=== PATIENT | female | born 1945 | race Caucasian/White ===

== ENCOUNTER → 2017-01-18 | Outpatient (CLI) | payer OTHER | LOC: FIMAGING 10:58 | PROVIDERS: ATTEND Internal Medicine Hematology & Oncology | DX: Z12.31 Encounter for screening mammogram for malignant neoplasm of breast (principal); Z80.3 Family history of malignant neoplasm of breast | CPT/HCPCS: G0202 ==

== ENCOUNTER → 2017-04-02 | Outpatient (CLI) | payer OTHER | LOC: FIMAGING 13:53 | PROVIDERS: ATTEND Internal Medicine Hematology & Oncology | DX: Z13.820 Encounter for screening for osteoporosis (principal); M85.80 Other specified disorders of bone density and structure, unspecified site; C50.919 Malignant neoplasm of unspecified site of unspecified female breast; C49.A0 Gastrointestinal stromal tumor, unspecified site; C49.4 Malignant neoplasm of connective and soft tissue of abdomen; D50.9 Iron deficiency anemia, unspecified ==

== ENCOUNTER → 2017-05-10 | Outpatient (CLI) | payer OTHER | LOC: CIMAGING 10:09 | PROVIDERS: ATTEND Physician Assistant | DX: D37.030 Neoplasm of uncertain behavior of the parotid salivary glands (principal) | CPT/HCPCS: 76536-PO ==

== ENCOUNTER 2017-07-22 11:33 | Day surgery (SDC) | payer OTHER ==
[2017-07-22] MEDS ORDERED: LR 1,000 ML IV ONE (12:13)
[2017-07-22] MEDS ORDERED: LIDOCAINE 1% 2 ML INJ ID PRN (12:13)
[2017-07-22] MEDS ORDERED: LIDOCAINE 1% 2 ML INJ ONE (12:15)
--- NOTE | 2017-07-22 13:02 | PDGENHP ---
History & Physical Chief Complaint: GERD/gist/hx polyps History of Present Illness: 71 year old female presents for evaluation of dysphagia and GERD. Hx of GIST s/p surgery. Pertinent Past, Social, Family History: PMHx: GIST. SurgHx: partial esophagus/ stomach removal Relevant Physical Exam: HEENT: anicteric. CV: RRR +s1s2. Lungs: CTAB. Abd: soft, nt, + BS Cardiorespiratory Assessment: ASA 2
[2017-07-22] MEDS ORDERED: INDOMETHACIN 50 MG SUPP PR PRN (13:03)
[2017-07-22] MEDS ORDERED: MIDAZOLAM 2 MG/2 ML VIAL IVP ONE (13:11)
--- NOTE | 2017-07-22 13:11 | PDANEPAE ---
ANE History of Present Illness EGD, Colonoscopy ANE Past Medical History - Cardiovascular History Hx Hypertension: No Hx Arrhythmias: No Hx Chest Pain: No Hx Coronary Artery / Peripheral Vascular Disease: No Hx CHF / Valvular Disease: No Hx Palpitations: No - Pulmonary History Hx COPD: No Hx Asthma/Reactive Airway Disease: No Hx Recent Upper Respiratory Infection: No Hx Oxygen in Use at Home: No Hx Sleep Apnea: No Sleep Apnea Screening Result - Last Documented: Negative - Neurologic History Hx Cerebrovascular Accident: No Hx Seizures: No Hx Dementia: No - Endocrine History Hx Diabetes: No Endocrine History Comment: being monitored by social media sr strategy manager for her thyroid nodules - Renal History Hx Renal Disorders: No - Liver History Hx Hepatic Disorders: No - Neurological & Psychiatric Hx Hx Neurological and Psychiatric Disorders: No Neurological / Psychiatric History Comment: anxiety surrounding husbands dx of terminal ca - Cancer History Hx Cancer: Yes Cancer History Comment: breast cancer and GIST- gastrointestinal stromal tumor. radiation with breast cancer and took irrimadex and now doing gleevec for GIST - Congenital Disorder History Hx Congenital Disorders: No - GI History Hx Gastrointestinal Disorders: Yes Gastrointestinal History Comment: reflux- no sphincter to keep the acid down. cannot lay flat. partial stomach. GIST - Other Health History Other Health History: wears partial- she will leave at home. very fragile thin skin d/t gleevec. bruises easily - Chronic Pain History Chronic Pain: No - Surgical History Prior Surgeries: egd with dilation with Isaiahu 06/04/16. egd with Raju 12/2014 and 04/21/12. 2002 breast lumpectomy. hysterectomy. santino. appy at 7 yo. broken leg and jaw repair from [facility]. 2010 partial esophagectomy d/t to rare cancer called GIST ANE Review of Systems Review of systems is: negative Review of Systems: - Exercise capacity METS (RN): 4 METS ANE Patient History - Allergies Allergies/Adverse Reactions: erythromycin base Allergy (Verified 06/26/17 10:33) Rash ketamine [Ketamine] Allergy (Verified 06/26/17 10:33) hallucinations in recovery room Penicillins Allergy (Verified 06/26/17 10:33) many years ago caused oral swelling - Home Medications Home medications: home medication list seen and reviewed Home Medications: Gleevec 100 mg (*) 06/01/16 [Last Taken 2 Days Ago ~07/20/17] Herbals/Supplements -Info Only 06/01/16 [Last Taken 1 Week Ago ~07/15/17] Prevacid 06/01/16 [Last Taken 07/22/17] Tums 500MG (*) 06/26/17 [Last Taken 07/22/17] - NPO status NPO Status: no food or drink >8 hours NPO Since - Liquids (Date): 07/22/17 NPO Since - Liquids (Time): 07:40 NPO Since - Solids (Date): 07/20/17 NPO Since - Solids (Time): 09:00 - Anes Hx Anes Hx: no prior problems - Smoking Hx Smoking Status: Never smoked - Family Anes Hx Family Anes Hx: none Family Hx Anesthesia Complications: none ANE Labs/Vital Signs - Vital Signs Blood Pressure: 159/74 Heart Rate: 78 Respiratory Rate: 18 O2 Sat (%): 96 Height: 165.1 cm Weight: 53.524 kg ANE Physical Exam - Airway Neck exam: FROM Mallampati Score: Class 1 Mouth exam: poor dentition - Pulmonary Pulmonary: no respiratory distress - Cardiovascular Cardiovascular: regular rate and rhythym - ASA Status ASA Status: III ANE Anesthesia Plan Total IV Anesthesia: Yes
[2017-07-22] MEDS ORDERED: MIDAZOLAM 2 MG/2 ML VIAL ONE (13:13)
[2017-07-22] MEDS ORDERED: NS 500 ML IV SCH (13:15)
[2017-07-22] MEDS ORDERED: PROPOFOL/EMULSION 500 MG/50 ML BOTTLE IV ONE (13:16)
--- NOTE | 2017-07-22 13:36 | GIREPORT ---
[facility] - Endoscopy Department Patient Name: Alice Choi Procedure Date: 07/22/2017 1:07 PM Patient Type: Outpatient Attending MD/ ER Physician: Aniceto Matos MD Procedure: Upper GI endoscopy Indications: Dysphagia, Esophageal reflux Patient Profile: 71 year old female with a history of GIST s/p resection, anastomotic esophageal stricture presents for evaluation of heartburn and dysphagia . Providers: Aniceto Matos MD Medicines: Monitored Anesthesia Care Complications: No immediate complications. Estimated blood loss: Minimal. Description of Procedure: After obtaining informed consent, the endoscope was passed under direct vision. Throughout the procedure, the patient's blood pressure, pulse, and oxygen saturations were monitored continuously. The Endoscope was intro duced through the mouth, and advanced to the second part of duodenum. The [facility] er GI endoscopy was accomplished without difficulty. The patient tolerated th e procedure well. Findings: One moderate benign-appearing, intrinsic stenosis was found at the esophageal anastomosis. And was traversed. A TTS dilator was passed thr ough the scope. Dilation with a 12-13.5-15 mm balloon and a 15-16.5-18 mm ba lloon dilator was performed to 18 mm. Biopsies were taken with a cold forceps for histology. Diffuse erythematous mucosa was found in the entire examined stomach. Biopsies were taken with a cold forceps for histology. The examined duodenum was normal. Estimated Blood Loss: Estimated blood loss was minimal. Post Op Diagnosis: - Benign-appearing esophageal stenosis. Dilated. Biopsied. - Erythematous mucosa in the stomach. Biopsied. - Normal examined duodenum. Recommendation: - Perform a colonoscopy today. - Follow an antireflux regimen. - Use a proton pump inhibitor PO daily. - Thank you for allowing me to participate in the care of your patient. Attending Participation: I personally performed the entire procedure. Aniceto Matos MD Aniceto Matos MD 07/22/2017 1:36:31 PM This report has been signed electronicallyAniceto Matos MD Number of Addenda: 0 Note Initiated On: 07/22/2017 1:07 PM [email or web address]}
[2017-07-22] MEDS ORDERED: HYDROCODONE/APAP 5/325 TAB PO PRN (14:04)
[2017-07-22] MEDS ORDERED: NALOXONE HCL 0.4 MG/ML INJ IVP PRN (14:04)
[2017-07-22] MEDS ORDERED: OXYCODONE/APAP 5/325 TAB PO PRN (14:04)
[2017-07-22] MEDS ORDERED: ACETAMINOPHEN 500 MG TAB PO PRN (14:04)
[2017-07-22] MEDS ORDERED: DIAZEPAM 10 MG/2 ML SYR IVP PRN (14:04)
[2017-07-22] MEDS ORDERED: ONDANSETRON 4 MG/2 ML VIAL IVP PRN (14:04)
[2017-07-22] MEDS ORDERED: fentaNYL 100 MCG/2 ML INJ IVP PRN (14:04)
--- NOTE | 2017-07-22 14:04 | POSTANESTH ---
Post Anesthetic Evaluation Cardiovascular Status: Normal, Stable, Similar to Pre-Op Cond Respiratory Status: Normal, Stable, Similar to Pre-op Cond. Level of Consciousness/Mental Status: Can Participate in Eval, Moderately Sleepy Pain Control: Adequate, Prn Tx Ordered Nausea/Vomiting Control: Adequate, Prn Tx Ordered Complications Possibly Related to Anesthesia: None Noted
--- NOTE | 2017-07-22 14:13 | GIREPORT ---
Replaced By [facility] - Endoscopy Department Patient Name: Alice Choi Procedure Date: 07/22/2017 1:06 PM Patient Type: Outpatient Attending MD/ ER Physician: Aniceto Matos MD Procedure: Colonoscopy Indications: High risk colon cancer surveillance: Personal history of colonic polyps Patient Profile: 71 year old female with a personal history of polyps presents for surveillance colonoscopy. Providers: Aniceto Matos MD Medicines: Monitored Anesthesia Care Complications: No immediate complications. Description of Procedure: After obtaining informed consent, the scope was passed under direct vis ion. Throughout the procedure, the patient's blood pressure, pulse, and oxyg en saturations were monitored continuously. The Colonoscope with irrigatio n channel was introduced through the anus with the intention of advancing to the cecum. The scope was advanced to the transverse colon before the procedure was aborted. Medications were given. The colonoscopy was perf ormed without difficulty. The patient tolerated the procedure well. The quali ty of the bowel preparation was poor. Findings: The perianal and digital rectal examinations were normal. Pertinent negatives include no palpable rectal lesions. Copious quantities of stool was found in the rectum, in the sigmoid col on, in the descending colon and in the transverse colon, precluding visualization. This was aggressively suctioned but the scope was clogge d mutliple times. Estimated Blood Loss: Estimated blood loss: none. Post Op Diagnosis: - Preparation of the colon was poor. - Stool in the rectum, in the sigmoid colon, in the descending colon an d in the transverse colon. - No specimens collected. Recommendation: - Discharge patient to home (with escort). - Resume previous diet. - Continue present medications. - Repeat colonoscopy at the next available appointment because the daphney l preparation was suboptimal. - 2 whole preps over 2 days - Thank you for allowing me to participate in the care of your patient. Attending Participation: I personally performed the entire procedure. Aniceto Matos MD Aniceto Matos MD 07/22/2017 2:12:50 PM This report has been signed electronicallyAniceto Matos MD Number of Addenda: 0 Note Initiated On: 07/22/2017 1:06 PM [email or web address]}
[2017-07-22 14:58] VITALS: TEMP 97.7; O2SAT 96
[2017-07-22 15:57] VITALS: BP 121/77; PULSE 77; RESP 18
== END 2017-07-22 16:00 | disposition home or self-care (01) ==
LOC: FSGY 11:33
PROVIDERS: ATTEND Internal Medicine Gastroenterology
PROC: 0DJD8ZZ Inspection of Lower Intestinal Tract, Via Natural or Artificial Opening Endoscopic (ICD-10-PCS; principal; 2017-07-22 13:15)
PROC: 0DB58ZX Excision of Esophagus, Via Natural or Artificial Opening Endoscopic, Diagnostic (ICD-10-PCS; 2017-07-22 13:15)
PROC: 0D758ZZ Dilation of Esophagus, Via Natural or Artificial Opening Endoscopic (ICD-10-PCS; 2017-07-22 13:15)
PROC: 0DB68ZX Excision of Stomach, Via Natural or Artificial Opening Endoscopic, Diagnostic (ICD-10-PCS; 2017-07-22 13:15)
DX: K22.2 Esophageal obstruction (principal); R13.10 Dysphagia, unspecified; K21.9 Gastro-esophageal reflux disease without esophagitis; Z86.010 Personal history of colon polyps
CPT/HCPCS: 43233; 43239; 45378; C1726; J2250; J2704

== ENCOUNTER 2017-10-07 11:46 | Day surgery (SDC) | payer OTHER ==
[2017-10-07] MEDS ORDERED: LR 1,000 ML IV ONE (12:15)
[2017-10-07] MEDS ORDERED: PROPOFOL/EMULSION 500 MG/50 ML BOTTLE IV ONE (13:03)
[2017-10-07] MEDS ORDERED: LIDOCAINE 2% 5 ML SDV ONE (13:05)
--- NOTE | 2017-10-07 13:11 | PDANEPAE ---
ANE Past Medical History - Cardiovascular History Hx Hypertension: No Hx Arrhythmias: No Hx Chest Pain: No Hx Coronary Artery / Peripheral Vascular Disease: No Hx CHF / Valvular Disease: No Hx Palpitations: No - Pulmonary History Hx COPD: No Hx Asthma/Reactive Airway Disease: No Hx Recent Upper Respiratory Infection: No Hx Oxygen in Use at Home: No Hx Sleep Apnea: No Sleep Apnea Screening Result - Last Documented: Negative - Neurologic History Hx Cerebrovascular Accident: No Hx Seizures: No Hx Dementia: No - Endocrine History Hx Diabetes: No Endocrine History Comment: being monitored by pediatric physical therapist for her thyroid nodules - Renal History Hx Renal Disorders: No - Liver History Hx Hepatic Disorders: No - Neurological & Psychiatric Hx Hx Neurological and Psychiatric Disorders: No Neurological / Psychiatric History Comment: anxiety surrounding husbands dx of terminal ca - Cancer History Hx Cancer: Yes Cancer History Comment: breast cancer and GIST- gastrointestinal stromal tumor. radiation with breast cancer and took irrimadex and now doing gleevec for GIST - Congenital Disorder History Hx Congenital Disorders: No - GI History Hx Gastrointestinal Disorders: Yes Gastrointestinal History Comment: reflux- no sphincter to keep the acid down. cannot lay flat. partial stomach. GIST - Other Health History Other Health History: wears partial- she will leave at home. very fragile thin skin d/t gleevec. bruises easily - Chronic Pain History Chronic Pain: No - Surgical History Prior Surgeries: egd with dilation with Isaiahu 06/04/16. egd with Isaiahu 12/2014 and 04/21/12. 2002 breast lumpectomy. hysterectomy. santion. appy at 7 yo. broken leg and jaw repair from [facility]. 2010 partial esophagectomy d/t to rare cancer called GIST ANE Review of Systems Review of Systems: - Exercise capacity METS (RN): 4 METS ANE Patient History - Allergies Allergies/Adverse Reactions: Iodinated Contrast- Oral and IV Dye Allergy (Unknown, Verified 09/24/17 16:24) Other-Enter Comments erythromycin base Allergy (Verified 06/26/17 10:33) Rash ketamine [Ketamine] Allergy (Verified 06/26/17 10:33) hallucinations in recovery room Penicillins Allergy (Verified 06/26/17 10:33) many years ago caused oral swelling - Home Medications Home medications: home medication list seen and reviewed Home Medications: Gleevec 100 mg (*) 06/01/16 [Last Taken 10/04/17] Herbals/Supplements -Info Only 06/01/16 [Last Taken 09/30/17] Tums 500MG (*) 06/26/17 [Last Taken 10/06/17] Dexilant 09/24/17 [Last Taken 10/07/17] - NPO status NPO Since - Liquids (Date): 10/06/17 NPO Since - Liquids (Time): 06:00 NPO Since - Solids (Date): 10/04/17 - Smoking Hx Smoking Status: Never smoked - Family Anes Hx Family Hx Anesthesia Complications: none ANE Labs/Vital Signs - Vital Signs Blood Pressure: 142/76 Heart Rate: 74 Respiratory Rate: 14 O2 Sat (%): 96 Height: 165.1 cm Weight: 53.524 kg ANE Physical Exam - Airway Neck exam: FROM Mallampati Score: Class 1 Mouth exam: normal dental/mouth exam - Pulmonary Pulmonary: no respiratory distress - Cardiovascular Cardiovascular: regular rate and rhythym - ASA Status ASA Status: III ANE Anesthesia Plan Anesthesia Plan: GA with mask
[2017-10-07] MEDS ORDERED: INDOMETHACIN 50 MG SUPP PR PRN (13:28)
--- NOTE | 2017-10-07 13:28 | PDGENHP ---
History & Physical Chief Complaint: phx polyps History of Present Illness: 72 year old female presents for surveillance colonoscopy. Pertinent Past, Social, Family History: PMHx:GIST, HTN. hyperlipidemia. SugHx: GIST. SoHx: no alc or cigs Relevant Physical Exam: HEENT: Anicteric. Cv: RRR +S1s2. lungs: CTAB. Abd: soft, nt + bs Cardiorespiratory Assessment: ASA 2
[2017-10-07] MEDS ORDERED: NS 500 ML IV SCH (13:30)
[2017-10-07] MEDS ORDERED: fentaNYL 100 MCG/2 ML INJ ONE (13:44)
--- NOTE | 2017-10-07 13:54 | POSTANESTH ---
Post Anesthetic Evaluation Cardiovascular Status: Normal, Stable Respiratory Status: Normal, Stable Level of Consciousness/Mental Status: Can Participate in Eval Pain Control: Adequate, Prn Tx Ordered Nausea/Vomiting Control: Adequate, Prn Tx Ordered Complications Possibly Related to Anesthesia: None Noted
[2017-10-07] MEDS ORDERED: ACETAMINOPHEN 500 MG TAB PO PRN (13:55)
[2017-10-07] MEDS ORDERED: LR 500 ML IV PRN (13:55)
[2017-10-07] MEDS ORDERED: oxyCODONE IR 5 MG TAB PO PRN (13:55)
[2017-10-07] MEDS ORDERED: fentaNYL 100 MCG/2 ML INJ IVP PRN (13:55)
[2017-10-07] MEDS ORDERED: ALBUTEROL 3 ML DEYVIAL IH PRN (13:55)
[2017-10-07] MEDS ORDERED: ONDANSETRON 4 MG/2 ML VIAL IVP PRN (13:55)
[2017-10-07] MEDS ORDERED: NALOXONE HCL 0.4 MG/ML INJ IVP PRN (13:55)
[2017-10-07] MEDS ORDERED: HYDROCODONE/APAP 5/325 TAB PO PRN (13:55)
--- NOTE | 2017-10-07 14:39 | GIREPORT ---
[facility] - Endoscopy Department Patient Name: Alice Choi Procedure Date: 10/07/2017 1:17 PM Patient Type: Outpatient Attending MD/ ER Physician: Aniceto Matos MD Procedure: Colonoscopy Indications: High risk colon cancer surveillance: Personal history of colonic polyps Patient Profile: 72 year old female with a personal history of polyps presents for surveillance colonoscopy. Providers: Aniceto Matos MD Medicines: Monitored Anesthesia Care Complications: No immediate complications. Estimated blood loss: Minimal. Description of Procedure: After obtaining informed consent, the scope was passed under direct vis ion. Throughout the procedure, the patient's blood pressure, pulse, and oxyg en saturations were monitored continuously. The Colonoscope with irrigatio n channel was introduced through the anus and advanced to the cecum, identified by appendiceal orifice and ileocecal valve. The colonoscopy was performed without difficulty. The patient tolerated the procedure well. The quality of the bowel preparation was good. The ileocecal valve, appendi ceal orifice, and rectum were photographed. Findings: The perianal and digital rectal examinations were normal. Pertinent negatives include no palpable rectal lesions. A 15 mm polyp was found in the ascending colon. The polyp was carpet-li ke. The polyp was removed with a piecemeal technique using a hot snare. Resection and retrieval were complete. Two sessile polyps were found in the hepatic flexure and ascending colo n. The polyps were 2 to 3 mm in size. These polyps were removed with a col d biopsy forceps. Resection and retrieval were complete. Estimated Blood Loss: Estimated blood loss was minimal. Post Op Diagnosis: - One 15 mm polyp in the ascending colon, removed piecemeal using a hot snare. Resected and retrieved. - Two 2 to 3 mm polyps at the hepatic flexure and in the ascending colo n, removed with a cold biopsy forceps. Resected and retrieved. Recommendation: - Discharge patient to home (with escort). - Resume previous diet. - Continue present medications. - Repeat colonoscopy in 1 year for surveillance after piecemeal polypec tg. - Await pathology results. - Thank you for allowing me to participate in the care of your patient. Attending Participation: I personally performed the entire procedure. Aniceto Matos MD Aniceto Matos MD 10/07/2017 2:39:03 PM This report has been signed electronicallyAniceto Matos MD Number of Addenda: 0 Note Initiated On: 10/07/2017 1:17 PM Total Procedure Duration Time 0 hours 37 minutes 22 seconds [email or web address]}
[2017-10-07 15:37] VITALS: BP 132/75
== END 2017-10-07 16:30 | disposition home or self-care (01) ==
LOC: FSGY 11:46
PROVIDERS: ATTEND Internal Medicine Gastroenterology
PROC: 0DBK8ZX Excision of Ascending Colon, Via Natural or Artificial Opening Endoscopic, Diagnostic (ICD-10-PCS; principal; 2017-10-07 13:15)
PROC: 0DBL8ZX Excision of Transverse Colon, Via Natural or Artificial Opening Endoscopic, Diagnostic (ICD-10-PCS; principal; 2017-10-07 13:15)
DX: Z12.11 Encounter for screening for malignant neoplasm of colon (principal); D12.2 Benign neoplasm of ascending colon; D12.3 Benign neoplasm of transverse colon; C49.A0 Gastrointestinal stromal tumor, unspecified site; Z87.19 Personal history of other diseases of the digestive system; Z85.3 Personal history of malignant neoplasm of breast; Z92.3 Personal history of irradiation
CPT/HCPCS: J2704; J3010

== ENCOUNTER → 2018-01-20 | Outpatient (CLI) | payer OTHER | LOC: FIMAGING 12:46 | PROVIDERS: ATTEND Internal Medicine Hematology & Oncology | DX: Z12.31 Encounter for screening mammogram for malignant neoplasm of breast (principal); Z85.3 Personal history of malignant neoplasm of breast ==

== ENCOUNTER 2018-09-29 18:35 | Emergency (ER) | payer OTHER ==
--- NOTE | 2018-09-29 20:09 | EDPHY ---
H & P Stated Complaint: asymtomatic L wrist pain at 1530 today. On Gkeevec Time Seen by Provider: 09/29/18 19:06 HPI/ROS: CHIEF COMPLAINT: Left wrist pain HISTORY OF PRESENT ILLNESS: This is a 73-year-old female with a history of GIST for which she takes Gleevec. She presents today after talking with her oncologist about left anterior wrist pain that occurred 2 hr prior to her presentation and has now mostly subsided (from a "10" to a "2"). She has had some pain at this site on and off for the past year but today's episode was much more severe than anything she has previously experienced. This occurred while she was at rest. The is seemed to come on abruptly and lasted almost 2 hr , although it began to improve at some point during that time. She did not take any medication for this pain. It was so severe that it brought her to tears, which is unusual for her. The pain extended into her index and long finger. No arm pain. No neck pain. She felt as if she could not open or close her hand when she had this pain. She notes that she has some swelling of her digits. She has not had any trauma. She does not perform work it that involves repetitive hand movements. She is not diabetic. She has no history of rheumatoid arthritis. She has had no trauma. REVIEW OF SYSTEMS: A ten system review of systems was performed and is negative with the exception of the items mentioned in the HPI. Past medical history: GIST Past surgical history: Noncontributory Social history: She lives alone. No tobacco use. General Appearance: Alert. Vital signs reviewed. Eyes: Pupils equal and round, no conjunctival injection, no discharge. Anicteric. Neck: Nontender to palpation of the cervical spine. Respiratory: Lungs are clear to auscultation; no wheezes, rales, or rhonchi. Cardiovascular: Regular rate and rhythm; no murmur, rub, or gallop. Skin: Warm and dry, no rashes on exposed skin, normal color. No abnormal skin warmth and no erythema. Pulses: 2+ radial pulses bilaterally. Brisk capillary refill left digits. Extremities: Mild swelling of the digits of her left hand. No wasting of the left thenar eminence. No joint deformities involving the upper extremities. Neurological: Alert and oriented. Moving all four extremities easily and equally. Positive Tinel's on the left. 5/5 strength with testing of bilateral deltoids, biceps, triceps, boom cat operator, wrist flexion, wrist extension, interossei. Sensation is intact to light touch over both upper extremities. Deep tendon reflexes are 2+ in the biceps and triceps bilaterally. Psychiatric: Normal affect. - Personal History Current Tetanus Diphtheria and Acellular Pertussis (TDAP): Unsure Tetanus Vaccine Date: unsure of date - Medical/Surgical History Hx Asthma: No Hx Chronic Respiratory Disease: No Hx Diabetes: No Hx Cardiac Disease: No Hx Renal Disease: No Hx Cirrhosis: No Hx Alcoholism: No Hx HIV/AIDS: No Hx Splenectomy or Spleen Trauma: No Other PMH: GIST - Social History Smoking Status: Never smoked Constitutional: Initial Vital Signs Temperature (C) 37 C 09/29/18 18:39 Heart Rate 90 09/29/18 18:39 Respiratory Rate 16 09/29/18 18:39 Blood Pressure 145/80 H 09/29/18 18:39 O2 Sat (%) 96 09/29/18 18:39 O2 Delivery Mode Room Air Allergies/Adverse Reactions: Iodinated Contrast- Oral and IV Dye Allergy (Unknown, Verified 09/29/18 18:39) Other-Enter Comments erythromycin base Allergy (Verified 09/29/18 18:39) Rash ketamine [Ketamine] Allergy (Verified 09/29/18 18:39) hallucinations in recovery room Penicillins Allergy (Verified 09/29/18 18:39) many years ago caused oral swelling Home Medications: Medication Instructions Recorded Gleevec 100 mg (*) 06/01/16 Tums 500MG (*) 06/26/17 Medical Decision Making ED Course/Re-evaluation: Atraumatic left wrist pain. There is nothing to suggest a vascular occlusion at the time of my exam. She has a normal neurologic exam. Nothing to suggest radiculopathy. I wonder about carpal tunnel syndrome and she and I discussed this is a possibility. There are no signs of infection--no warmth or erythema. She has no joint deformities. She has mild swelling of the digits of her left hand and I advised her to remove the ring that she is wearing on her ring finger. She has had no trauma and I do not suspect In my opinion, this fracture will not require reduction or surgical treatment. Management of this fracture consists of immobilization with a [default value], control of swelling with ice and elevation, and pain control. Periodic followup is required. The first followup with an orthopedist as recommended in [default value] days. This constitutes essential management of this fracture.. We talked about symptomatic treatment with ice, elevation, and a short course of NSAIDs. I spoke with her oncologist about the advisability of NSAIDs (with Gleevec) and was given the go ahead for a short course. Along with symptomatic treatment I am recommending watching and waiting. She is not improving or if she has a change in her symptoms, she should be re- evaluated. We discussed danger signs that should prompt immediate re- evaluation. Departure - Departure Disposition: Home, Routine, Self-Care Clinical Impression: Wrist pain, acute Qualifiers: Laterality: left Qualified Code(s): M25.532 - Pain in left wrist Condition: Good Instructions: Arthralgia (ED) Additional Instructions: It is not clear what is causing your wrist pain. I note that your fingers are somewhat swollen. Please keep her hand elevated above the level of your heart as much as possible. I am concerned about the possibility of nerve compression in your wrist. This is called carpal tunnel syndrome. I would like you to take ibuprofen, 400 mg, when you get home tonight. You can take another dose in the morning and can take it every eight hours. You should not take this longer than a day or two. Please follow up with either primary care physician or your oncologist. If you are worse in any way return to the emergency department for another evaluation. Referrals: Domi Patel MD [Primary Care Provider] - As per Instructions Bryan Trevizo MD [Medical Doctor] - As per Instructions
[2018-09-29 20:23] VITALS: BP 142/79
== END 2018-09-29 20:22 | disposition home or self-care (01) ==
DX: M25.532 Pain in left wrist (principal); C49.A0 Gastrointestinal stromal tumor, unspecified site; Z79.899 Other long term (current) drug therapy

== ENCOUNTER → 2018-10-02 | Outpatient (CLI) | payer OTHER | LOC: BHFA 13:15 | PROVIDERS: ATTEND Internal Medicine Cardiovascular Disease | DX: R06.02 Shortness of breath (principal); R07.9 Chest pain, unspecified ==

== ENCOUNTER 2018-10-13 10:37 | Day surgery (SDC) | payer OTHER ==
[2018-10-13] MEDS ORDERED: LR 1,000 ML IV ONE (10:55)
[2018-10-13] MEDS ORDERED: PROPOFOL/EMULSION 500 MG/50 ML BOTTLE IV ONE (12:35)
[2018-10-13] MEDS ORDERED: fentaNYL 100 MCG/2 ML INJ ONE (12:35)
[2018-10-13] MEDS ORDERED: INDOMETHACIN 50 MG SUPP PR PRN (12:36)
--- NOTE | 2018-10-13 12:36 | PDGENHP ---
History & Physical Chief Complaint: gist/heartburn/hx of complex polyps History of Present Illness: 73 year old female presents for evaluation of complex ascending colon polyp, heartburn Pertinent Past, Social, Family History: PMHx: GERD, GIST. PSurgHx: Esophageal/ gastric resection Relevant Physical Exam: HEENT: anicteric. CV: RRR +s1s2. Lungs: CTAB. Abd: soft, nt, + bs Cardiorespiratory Assessment: HEENT: anicteric. Cv; RRR +s1s2. Lungs: CTAB. Abd: soft,nt, + bs
[2018-10-13] MEDS ORDERED: NS 500 ML IV SCH (12:45)
[2018-10-13] MEDS ORDERED: fentaNYL 100 MCG/2 ML INJ IVP PRN (13:13)
[2018-10-13] MEDS ORDERED: DEXAMETHASONE 4 MG/ML VIAL IVP PRN (13:13)
[2018-10-13] MEDS ORDERED: PHENYLEPHRINE HCL 100 MCG/ML SYR IVP PRN (13:13)
[2018-10-13] MEDS ORDERED: NALOXONE HCL 0.4 MG/ML INJ IVP PRN (13:13)
[2018-10-13] MEDS ORDERED: METOCLOPRAMIDE 10 MG/2 ML VIAL IVP PRN (13:13)
[2018-10-13] MEDS ORDERED: ONDANSETRON 4 MG/2 ML VIAL IVP PRN (13:13)
[2018-10-13] MEDS ORDERED: LR 500 ML IV PRN (13:13)
[2018-10-13] MEDS ORDERED: PROMETHAZINE HCL 25 MG/ML INJ IVP PRN (13:13)
[2018-10-13] MEDS ORDERED: oxyCODONE IR 5 MG TAB PO PRN (13:13)
[2018-10-13] MEDS ORDERED: ALBUTEROL 3 ML DEYVIAL IH PRN (13:13)
[2018-10-13] MEDS ORDERED: MEPERIDINE 25 MG/0.5 ML AMP IVP PRN (13:13)
--- NOTE | 2018-10-13 13:13 | PDANEPAE ---
ANE History of Present Illness GIST tumor s/f EGD/colon ANE Past Medical History - Cardiovascular History Hx Hypertension: No Hx Arrhythmias: No Hx Chest Pain: No Hx Coronary Artery / Peripheral Vascular Disease: No Hx CHF / Valvular Disease: No Hx Palpitations: No Cardiovascular History Comment: BP meds discontinued several years ago. Intermittent arrythmia associated with anemia s/t GIST - Pulmonary History Hx COPD: No Hx Asthma/Reactive Airway Disease: No Hx Recent Upper Respiratory Infection: No Hx Oxygen in Use at Home: No Hx Sleep Apnea: No Sleep Apnea Screening Result - Last Documented: Negative - Neurologic History Hx Cerebrovascular Accident: No Hx Seizures: No Hx Dementia: No - Endocrine History Hx Diabetes: No Endocrine History Comment: being monitored by mechanic's assistant for her thyroid nodules - Renal History Hx Renal Disorders: No - Liver History Hx Hepatic Disorders: No - Neurological & Psychiatric Hx Hx Neurological and Psychiatric Disorders: No Neurological / Psychiatric History Comment: anxiety surrounding husbands dx of terminal ca - Cancer History Hx Cancer: Yes Cancer History Comment: breast cancer and GIST- gastrointestinal stromal tumor. radiation with breast cancer and took irrimadex and now doing gleevec for GIST - Congenital Disorder History Hx Congenital Disorders: No - GI History Hx Gastrointestinal Disorders: Yes Gastrointestinal History Comment: reflux- no sphincter to keep the acid down. cannot lay flat. partial stomach. GIST - Other Health History Other Health History: wears partial- she will leave at home. very fragile thin skin d/t gleevec. bruises easily - Chronic Pain History Chronic Pain: No - Surgical History Prior Surgeries: egd with dilation with Raju 06/04/16. egd with Raju 12/2014 and 04/21/12. 2002 breast lumpectomy. hysterectomy. santino. appy at 7 yo. broken leg and jaw repair from [facility]va. 2010 partial esophagectomy d/t to rare cancer called GIST ANE Review of Systems Review of Systems: - Exercise capacity METS (RN): 4 METS ANE Patient History - Allergies Allergies/Adverse Reactions: ketamine [Ketamine] Allergy (Severe, Verified 10/03/18 09:07) hallucinations in recovery room Iodinated Contrast- Oral and IV Dye Allergy (Unknown, Verified 09/29/18 18:39) Other-Enter Comments erythromycin base Allergy (Verified 09/29/18 18:39) Rash Penicillins Allergy (Verified 09/29/18 18:39) many years ago caused oral swelling - Home Medications Home medications: home medication list seen and reviewed Home Medications: Gleevec 100 mg (*) 06/01/16 [Last Taken 10/10/18] Tums 500MG (*) 1,000 PRN PRN 06/26/17 [Last Taken 10/12/18] Cholecalciferol Vit D3 [Vitamin D3 2000 units tab (OTC)] 2,000 units PO DAILY [Last Taken 1 Week Ago ~10/06/18] Lansoprazole [Prevacid] 30 mg PO Q12 10/03/18 [Last Taken 10/13/18] Magnesium Glycinate [MAG GLYCINATE] 400 mg PO 10/03/18 [Last Taken 1 Week Ago ~ 10/06/18] - NPO status NPO Status: no food or drink >8 hours NPO Since - Liquids (Date): 10/13/18 NPO Since - Liquids (Time): 03:00 NPO Since - Solids (Date): 10/11/18 NPO Since - Solids (Time): 09:00 - Anes Hx Anes Hx: no prior problems - Smoking Hx Smoking Status: Never smoked - Alcohol Use Alcohol Use: Rarely - Family Anes Hx Family Anes Hx: none Family Hx Anesthesia Complications: none ANE Labs/Vital Signs - Vital Signs Blood Pressure: 157/83 Heart Rate: 83 Respiratory Rate: 16 O2 Sat (%): 97 Height: 165.1 cm Weight: 54.431 kg ANE Physical Exam - Airway Mallampati Score: Class 2 Mouth exam: poor dentition - Pulmonary Pulmonary: no respiratory distress - Cardiovascular Cardiovascular: regular rate and rhythym - ASA Status ASA Status: II ANE Anesthesia Plan Anesthesia Plan: GA with mask Total IV Anesthesia: Yes
[2018-10-13] MEDS ORDERED: PROPOFOL 200 MG/20 ML VIAL ONE (13:18)
--- NOTE | 2018-10-13 13:40 | GIREPORT ---
Former[facility] Surgical Services - Endoscopy Department Patient Name: Alice Choi Procedure Date: 10/13/2018 12:31 PM Patient Type: Outpatient Attending MD/ ER Physician: Aniceto Matos MD Procedure: Upper GI endoscopy Indications: Heartburn Patient Profile: 73 year old female with a history of a GIST s/p resection presents for evaluation of increasing heartburn. Providers: Aniceto Matos MD Medicines: Monitored Anesthesia Care Complications: No immediate complications. Estimated blood loss: Minimal. Description of Procedure: After obtaining informed consent, the endoscope was passed under direct vision. Throughout the procedure, the patient's blood pressure, pulse, and oxygen saturations were monitored continuously. The Endoscope was intro duced through the mouth, and advanced to the second part of duodenum. The [facility] er GI endoscopy was accomplished without difficulty. The patient tolerated th e procedure well. Findings: An esophago-gastric anastomosis was found. LA Grade B (one or more mucosal breaks greater than 5 mm, not extending between the tops of two mucosal folds) esophagitis was found at the esophageal anastomosis. Biopsies were taken with a cold forceps for histology. A hiatal hernia was present. A few small sessile polyps were found in the gastric fundus and in the gastric body. Biopsies were taken with a cold forceps for histology. The examined duodenum was normal. Estimated Blood Loss: Estimated blood loss was minimal. Post Op Diagnosis: - An anastomosis was found. - LA Grade B reflux esophagitis. Rule out Bradley's esophagus. Biopsied . - Hiatal hernia. - A few gastric polyps. Biopsied. - Normal examined duodenum. - Etiology? Secondary to GERD. Recommend full dose PPI BID Recommendation: - Perform a colonoscopy today. - Advance diet as tolerated. - Continue present medications. - Use a proton pump inhibitor PO BID. - Follow an antireflux regimen. Attending Participation: I personally performed the entire procedure. Aniceto Matos MD Aniceto Matos MD 10/13/2018 1:39:33 PM This report has been signed electronicallyAniceto Matos MD Number of Addenda: 0 Note Initiated On: 10/13/2018 12:31 PM [email or web address]
--- NOTE | 2018-10-13 13:46 | GIREPORT ---
[facility] Surgical Services - Endoscopy Department Patient Name: Alice Choi Procedure Date: 10/13/2018 12:31 PM Patient Type: Outpatient Attending MD/ ER Physician: Aniceto Matos MD Procedure: Colonoscopy Indications: High risk colon cancer surveillance: Personal history of colonic polyps Patient Profile: 73 year old female with a history of complex adenomas, CHEK2 mutation, presents for surveillane colonoscopy. Providers: Aniceto Matos MD Medicines: Monitored Anesthesia Care Complications: No immediate complications. Estimated blood loss: Minimal. Description of Procedure: After obtaining informed consent, the scope was passed under direct vis ion. Throughout the procedure, the patient's blood pressure, pulse, and oxyg en saturations were monitored continuously. The Colonoscope with irrigatio n channel was introduced through the anus and advanced to the cecum, identified by appendiceal orifice and ileocecal valve. The colonoscopy was performed without difficulty. The patient tolerated the procedure well. The quality of the bowel preparation was good. The ileocecal valve, appendi ceal orifice, and rectum were photographed. Findings: The perianal and digital rectal examinations were normal. Pertinent negatives include no palpable rectal lesions. Diverticula were found in the sigmoid colon. Two sessile polyps were found in the rectum and descending colon. The p olyps were 2 to 3 mm in size. These polyps were removed with a cold biopsy forceps. Resection and retrieval were complete. Estimated Blood Loss: Estimated blood loss was minimal. Post Op Diagnosis: - Diverticulosis in the sigmoid colon. - Two 2 to 3 mm polyps in the rectum and in the descending colon, remov ed with a cold biopsy forceps. Resected and retrieved. Recommendation: - Discharge patient to home (with escort). - The signs and symptoms of potential delayed complications were discus sed with the patient. - Patient has a contact number available for emergencies. - Return to normal activities tomorrow. - Resume previous diet. - Continue present medications. - Await pathology results. - Repeat colonoscopy in 2 years for surveillance based on pathology res ults. - Thank you for allowing me to participate in the care of your patient. Attending Participation: I personally performed the entire procedure. Aniceto Matos MD Aniceto Matos MD 10/13/2018 1:45:19 PM This report has been signed electronicallyAnicteo Matos MD Number of Addenda: 0 Note Initiated On: 10/13/2018 12:31 PM Total Procedure Duration Time 0 hours 34 minutes 12 seconds [email or web address]
[2018-10-13 15:28] VITALS: BP 152/72
== END 2018-10-13 15:29 | disposition home or self-care (01) ==
LOC: FSGY 10:37
PROVIDERS: ATTEND Internal Medicine Gastroenterology
DX: K63.5 Polyp of colon (principal); K62.1 Rectal polyp; K21.9 Gastro-esophageal reflux disease without esophagitis; K57.30 Diverticulosis of large intestine without perforation or abscess without bleeding; K44.9 Diaphragmatic hernia without obstruction or gangrene; Z85.028 Personal history of other malignant neoplasm of stomach; Z85.3 Personal history of malignant neoplasm of breast
CPT/HCPCS: J2704; J3010